=== PATIENT | male | born 1970 | race Caucasian/White ===

== ENCOUNTER 2021-07-06 05:21 | Emergency (ER) | payer OTHER ==
[2021-07-06] MEDS ORDERED: AUGMENTIN 875-1 EACH PO (08:35)
== END 2021-07-06 09:29 | disposition home or self-care (01) ==
LOC: ER1 05:21
DX: S91.312A Laceration without foreign body, left foot, initial encounter (principal); Z23 Encounter for immunization; F17.200 Nicotine dependence, unspecified, uncomplicated; W25.XXXA Contact with sharp glass, initial encounter; Y99.0 Civilian activity done for income or pay
CPT/HCPCS: 73630; 90715; 99283